=== PATIENT | female | born 1980 | race Caucasian/White ===

== ENCOUNTER 2023-02-25 08:45 | Outpatient (CLI) | payer OTHER, SELFPAY ==
--- NOTE | ~2023-02-25 | MM_ITS ---
EXAMINATION: MM screening kareem BI w ck HISTORY: Screening mammogram TECHNIQUE: Craniocaudal and mediolateral oblique 3-D tomosynthesis images were obtained and synthetic 2-D images were generated. CAD analysis was submitted and interpreted. COMPARISON: No prior mammogram is available for comparison at this institution. BREAST PARENCHYMAL COMPOSITION: The breasts are heterogeneously dense, which may obscure small masses . FINDINGS: No suspicious mass, calcification, or architectural distortion are identified in either bry ast to suggest malignancy. IMPRESSION: 1. No mammographic evidence of malignancy. 2. Recommend routine screening mammography in one year. BI-RADS Category 1: Negative Reviewed, dictated and finalized at location A.
[2023-02-25 09:11] LABS: Basophils Percent Auto 0.3 % (0.2-1.2); Eosinophils Absolute Auto 0.1 K/mm3 (0-0.3); Hematocrit 40.6 % (37.0-47.0); Hemoglobin 13.5 g/dL (12.0-15.0); Immature Granulocyte Absolute 0.02 K/mm3 (0.00-0.031); Immature Granulocyte Percent A 0.3 % (0-0.5); Lymphocytes Percent Auto 22.9 % (18.3-44.2); Mean Corpuscular HGB Conc 33.3 g/dl (32-36); Mean Corpuscular Volume 93.1 fl (80-100); Monocytes Absolute Auto 0.5 K/mm3 (0.1-0.6); Monocytes Percent Auto 7.8 % (2.6-8.5); Neutrophils Absolute Auto 4.4 K/mm3 (1.3-6.7); Neutrophils Percent Auto 66.7 % (45.5-73.1); Platelet Count Result 304 k/mm3 (150-375); Red Blood Count 4.36 M/mm3 (4.2-5.4); Red Cell Distribution Width 12.9 % (11.5-14.5); White Blood Count 6.6 K/mm3 (4.5-10.0)
[2023-02-25 09:20] LABS: Alanine Aminotransferase 23 U/L (6-35); Albumin Level 4.7 g/dL (3.5-5.1); Alkaline Phosphatase 78 U/L (38-126); Anion Gap 8 mmol/L (8-16); Aspartate Amino Transferase 26 U/L (14-36); Bilirubin,Total 0.7 mg/dL (0.2-1.3); Blood Urea Nitrogen 12 mg/dL (7-17); Calcium 9.3 mg/dL (8.4-10.2); Carbon Dioxide 29 mmol/L (22-30); Chloride 98 mmol/L (98-107); Cholesterol 184 mg/dL (0-200); Estimated Glomerular Filt Rate > 60; Glucose 91 mg/dL (65-110); HDL Direct 54 mg/dL; Potassium 4.3 mmol/L (3.4-5.0); Sodium 135 mmol/L (137-145); Triglycerides 55 mg/dL (<150)
[2023-02-25 09:24] LABS: Rheumatoid Factor < 12.0 IU/ML (<12)
[2023-02-25 09:31] LABS: LDL Cholesterol Direct 102 mg/dL
[2023-02-25 09:47] LABS: Erythrocyte Sedimentation Rate 45 mm/hr (0-20)
[2023-02-25 09:57] LABS: Vitamin D 25 Hydroxy 38.5 ng/mL
[2023-02-28 09:43] LABS: ANA Cascade Screen Negative (Negative)
[2023-03-02 10:48] LABS: Anti Cyclic Citrullinated Pept <16 Units (<20)
== END 2023-02-25 08:46 | disposition home or self-care (01) ==
PROVIDERS: PCP Internal Medicine; Referring Provider Physician Assistant Medical; Visit Provider Physician Assistant Medical
DX: Z12.31 Encounter for screening mammogram for malignant neoplasm of breast (principal); Z00.00 Encounter for general adult medical examination without abnormal findings; E53.8 Deficiency of other specified B group vitamins; E55.9 Vitamin D deficiency, unspecified; M25.50 Pain in unspecified joint; M13.0 Polyarthritis, unspecified
CPT/HCPCS: 36415; 77063; 77067; 80053; 80061; 82306; 82607; 84443; 85025; 85652; 86038; 86200; 86430

== ENCOUNTER 2024-01-17 08:34 | Outpatient (CLI) | payer OTHER, SELFPAY ==
[2024-01-17 09:08] LABS: Basophils Percent Auto 0.4 % (0.2-1.2); Eosinophils Absolute Auto 0.2 K/mm3 (0-0.3); Hematocrit 40.5 % (37.0-47.0); Hemoglobin 12.9 g/dL (12.0-15.0); Immature Granulocyte Absolute 0.02 K/mm3 (0.00-0.031); Immature Granulocyte Percent A 0.4 % (0-0.5); Lymphocytes Absolute Auto 1.25 K/mm3 (0.9-3.2); Lymphocytes Percent Auto 24.9 % (18.3-44.2); Mean Corpuscular HGB Conc 31.9 g/dl (32-36); Mean Corpuscular Hemoglobin 30.4 pg (26-34); Mean Corpuscular Volume 95.5 fl (80-100); Mean Platelet Volume 9.6 fl (7.4-10.4); Monocytes Absolute Auto 0.4 K/mm3 (0.1-0.6); Neutrophils Absolute Auto 3.2 K/mm3 (1.3-6.7); Neutrophils Percent Auto 64.3 % (45.5-73.1); Platelet Count Result 276 k/mm3 (150-375); Red Blood Count 4.24 M/mm3 (4.2-5.4); Red Cell Distribution Width 12.6 % (11.5-14.5)
[2024-01-17 09:57] LABS: Alanine Aminotransferase 26 U/L (6-35); Albumin Level 4.4 g/dL (3.5-5.1); Alkaline Phosphatase 69 U/L (38-126); Anion Gap 3 mmol/L (8-16); Aspartate Amino Transferase 28 U/L (14-36); Bilirubin,Total 0.7 mg/dL (0.2-1.3); Blood Urea Nitrogen 11 mg/dL (7-17); Calcium 9.5 mg/dL (8.4-10.2); Carbon Dioxide 30 mmol/L (22-30); Chloride 102 mmol/L (98-107); Cholesterol 167 mg/dL (0-200); Estimated Glomerular Filt Rate > 60; Glucose 92 mg/dL (65-110); HDL Direct 53 mg/dL; Magnesium 2.2 mg/dL (1.6-2.3); Sodium 135 mmol/L (137-145); Triglycerides 55 mg/dL (<150)
[2024-01-17 10:08] LABS: LDL Cholesterol Direct 97 mg/dL
[2024-01-17 10:30] LABS: Erythrocyte Sedimentation Rate 16 mm/hr (0-20)
[2024-01-17 12:04] LABS: Vitamin D 25 Hydroxy 70.4 ng/mL
[2024-01-17 12:12] LABS: Folic Acid 11.2 ng/mL (2.76->20)
[2024-01-21 08:10] LABS: CRP, High Sensitivity 1.1 mg/L (***)
== END 2024-01-17 08:35 | disposition home or self-care (01) ==
LOC: ANHLAB 08:35
PROVIDERS: PCP Internal Medicine; Visit Provider Physician Assistant Medical
DX: E53.8 Deficiency of other specified B group vitamins (principal); E55.9 Vitamin D deficiency, unspecified; M25.50 Pain in unspecified joint; R20.2 Paresthesia of skin; R51.9 Headache, unspecified; R53.83 Other fatigue; Z00.00 Encounter for general adult medical examination without abnormal findings; Z83.3 Family history of diabetes mellitus
CPT/HCPCS: 36415; 80053; 80061; 82306; 82607; 82746; 83735; 85025; 85652; 86141

== ENCOUNTER 2024-05-07 09:53 | Outpatient (CLI) | payer OTHER, SELFPAY ==
--- NOTE | ~2024-05-07 | MM_ITS ---
EXAMINATION: MM screening kareem BI w ck HISTORY: Screening TECHNIQUE: Craniocaudal and mediolateral oblique 3-D tomosynthesis images were obtained and synthetic 2-D images were generated. CAD analysis was submitted and interpreted. COMPARISON: 02/25/2023 BREAST PARENCHYMAL COMPOSITION: Dense: The breasts are extremely dense, which lowers the sensitivity of mammography. FINDINGS: There is no evidence of suspicious mass, calcification, or architectural distortion to sugg est malignancy in either breast. There has been no suspicious interval change. IMPRESSION: 1. No mammographic evidence of malignancy. 2. Recommend routine screening mammography in one year. BI-RADS Category 1: Negative Reviewed, dictated and finalized at location B.
== END 2024-05-07 09:54 | disposition home or self-care (01) ==
PROVIDERS: PCP Physician Assistant Medical; Visit Provider Physician Assistant Medical
DX: Z12.31 Encounter for screening mammogram for malignant neoplasm of breast (principal)
CPT/HCPCS: 77063; 77067

== ENCOUNTER 2025-03-11 10:03 | Outpatient (CLI) | payer OTHER, SELFPAY ==
--- OUTSIDE RECORDS SUMMARY | 2025-03-11 10:14 | XMS_ITS | Clinical Summary ---
Author Organization [facility] [employer] Address [address] [place] [address] Care Team Providers Care Content Curator Name Role Phone Unavailable Primary Care Provider Unavailabl e Source Comments [facility] [employer],non-owned Affiliates and Associated Physician Practices is amultiple site organization consisting of ambulatory clinics and hospital sitesin [place], [place], [place] and [place]. This disclosure is being madepursuant to the Care Everywhere program and may not contain all information available regarding this patient. Last updated 18.[facility] [employer] Allergies Active Allergy Reactions Criticality Noted Date Comments Ciprofloxacin Urticaria,Itching Medium 02/03/2019 Hydroxyquinolines Urticaria Medium 02/03/2019 Medications * Be aware that medications may not be up to date on this document. Alwaysverify current medications with the patient. Vit-Fe Fumarate-FA ( VITAMIN) 28-0.8 MG tablet Take 1 tablet by mouth once daily Active pyridoxine (VITAMIN B-6) 25 MG tablet Take 50 mg by mouth once daily Active cyanocobalamin (VITAMIN B-12) 100 MCG tablet Take 100 mcg by mouth once daily Active Cholecalciferol (VITAMIN D3) 400 UNITS tablet Take 400 Units by mouth once daily Active magnesium oxide (MAG-OX) 400 MG tablet Take 200 mg by mouth once daily Active Active Problems Problem Noted Date Diagnosed Date Low-lying placenta 03/01/2019 Assessment & Plan (03/03/2019 11:08 AM CDT): Resolved low lying placenta No suggestion of Vasa previa May discontinue pelvic rest Maintains residual risk of growth or focal placenta accreta based on number of prior deliveries 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/2019 Assessment & Plan (03/03/2019 11:07 AM CDT): Serial growth every 4 weeks Supervision of high-risk of elderly mu ltigravida 03/01/2019 Overview (03/03/2019): Anatomy screen: Unremarkable H/O section complicating 02/2019 Resolved Problems Problem Noted Date Diagnosed Date Resolved Date Abnormal obstetric ultrasound scan 01/29/2019 03/03/2019 Antepartum multigravida of a dvanced maternal age 0401/29/2019 03/03/2019 Family History Medical History Relation Name Comments Hypertension Brother Cancer - Prostate Father Diabetes - Type 2 Father Hypertension Father Anxiety Disorder Mother COPD - Chronic Obstructive Pulmonary Disease Mother Hypertension Mother Thyroid Disease Mother Relation Name Status Comments Brother Alive Father Alive Mother Alive alpha 1 antitri psen carrier Sister Alive Social History Tobacco Use Types Packs/Day Years Used Date Smoking Tobacco: Never Smokeless Tobacco: Never Alcohol Use Standard Drinks/Week Comments No 0 (1 standard drink = 0.6 oz pur e alcohol) Comments No Sex and Gender Information Value Date Recorded Sex Assigned at Not on file 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 Gender Identity Not on file Sexual Orientation Not on file Last Filed Vital Signs Vital Sign Reading Time Taken Comments Blood Pressure 110/63 03/03/2019 10:49 AM CDT Pulse 75 03/03/2019 10:49 AM CDT Temperature - - Respiratory Rate - - Oxygen Saturation - - Inhaled Oxygen Concentration - - Weight 88.9 kg (196 lb) 03/03/2019 10:49 AM CDT Height - - Body Mass Index - - Plan of Treatment Health Maintenance Due Date Last Done Comments LIPID TESTING 1981 MAMMOGRAM 1981 HIV SCREENING 1996 HEPATITIS C SCREENING 05/28/1999 DTAP/TDAP/TD VACCINES (1 - Tdap) 2000 HEPATITIS B VACCINE (1 of 3 - 19+ 3-dose series) 2000 COVID-19 VACCINE ( - 2023-2 5 season) 2024 DEPRESSION SCREENING 10/27/2024 INFLUENZA VACCINE (Season Ended) 2025 ZOSTER VACCINE (1 of 2) 2031 HIB VACCINE Aged Out No longer eligi ble based on patient's age to complete this topic HPV VACCINE Aged Out No longer eligi ble based on patient's age to complete this topic MENINGOCOCCAL (Group B) VACC INE SHARED DECISION-MAKING Aged Out No longer eligibl e based on patient's age to complete this topic MENINGOCOCCAL GROUPS A/C/Y/W VACCINE Aged Out No longer eligible b ased on patient's age to complete this topic PNEUMOCOCCAL VACCINE Aged Out No long er eligible based on patient's age to complete this topic Insurance [facility] [address] [facility]
[2025-03-11 10:30] LABS: Basophils Percent Auto 0.4 % (0.2-1.2); Eosinophils Absolute Auto 0.1 K/mm3 (0-0.3); Eosinophils Percent Auto 1.8 % (0-4.4); Hematocrit 40.2 % (37.0-47.0); Hemoglobin 12.6 g/dL (12.0-15.0); Immature Granulocyte Absolute 0.01 K/mm3 (0.00-0.031); Immature Granulocyte Percent A 0.2 % (0-0.5); Lymphocytes Absolute Auto 1.08 K/mm3 (0.9-3.2); Lymphocytes Percent Auto 21.9 % (18.3-44.2); Mean Corpuscular HGB Conc 31.3 g/dl (32-36); Mean Corpuscular Hemoglobin 30.1 pg (26-34); Mean Corpuscular Volume 95.9 fl (80-100); Mean Platelet Volume 9.4 fl (7.4-10.4); Monocytes Absolute Auto 0.5 K/mm3 (0.1-0.6); Monocytes Percent Auto 9.1 % (2.6-8.5); Neutrophils Absolute Auto 3.3 K/mm3 (1.3-6.7); Neutrophils Percent Auto 66.6 % (45.5-73.1); Platelet Count Result 292 k/mm3 (150-375); Red Blood Count 4.19 M/mm3 (4.2-5.4); Red Cell Distribution Width 12.6 % (11.5-14.5); White Blood Count 4.9 K/mm3 (4.5-10.0)
[2025-03-11 11:14] LABS: Total Triiodothyronine (T3) 1.26 NG/ML (0.97-1.69)
[2025-03-11 11:16] LABS: Erythrocyte Sedimentation Rate 54 mm/hr (0-20)
[2025-03-11 11:34] LABS: Iron 102 ug/dL (37-170)
[2025-03-11 11:45] LABS: Percent Iron Saturation 28 % (20-50)
[2025-03-11 12:17] LABS: Free T4 Free Thyroxine 1.16 ng/dL (0.78-2.19)
[2025-03-11 13:00] LABS: Free T3 2.97 pg/mL (2.71-6.16); Vitamin D 25 Hydroxy 88.2 ng/mL
[2025-03-11 13:26] LABS: Hemoglobin A1C 5.3 % (<5.7)
[2025-03-12 04:54] LABS: Triiodothryronine T3 Uptake 28 % (22-35)
[2025-03-14 16:53] LABS: Reference Lab Test Name EBV Early Ag DAB IgG
[2025-03-23 02:19] LABS: Estradiol, Ultrasensitive 85 pg/mL
== END 2025-03-11 10:04 | disposition home or self-care (01) ==
PROVIDERS: PCP Physician Assistant Medical; Visit Provider Physician Assistant Medical
DX: M25.50 Pain in unspecified joint (principal); R53.83 Other fatigue; Z00.00 Encounter for general adult medical examination without abnormal findings; N93.8 Other specified abnormal uterine and vaginal bleeding
CPT/HCPCS: 36415; 82306; 82607; 82670; 82728; 83036; 83540; 83550; 84439; 84443; 84479; 84480; 84481; 85025; 85652; 86663

== ENCOUNTER 2025-04-01 09:47 | Outpatient (CLI) | payer OTHER, SELFPAY ==
--- NOTE | ~2025-04-01 | CT_ITS ---
EXAMINATION: CT abdomen pelvis w con DATE: 04/01/2025 10:50 INDICATION: Abdominal pain TECHNIQUE: Computed tomography (CT) of the abdomen and pelvis was performed with 100 cc Omnipaque 350 intravenous contrast. The dose-length product was 549.06 mGy-cm. Automated exposure control and iterative reconstruction technique were employed. COMPARISON: None. FINDINGS: Lung bases unremarkable. Heart size normal. No significant pleural or pericardial effusion. The liver, spleen, pancreas, adrenal glands. Trace free fluid in the pelvis, physiologic. No signifi cant vascular abnormality. No lymphadenopathy. No acute osseous abnormality. Mild levoscoliosis of th e lumbar spine. IMPRESSION: 1. No acute abdominal abnormality. Reviewed, dictated and finalized at location A.
== END 2025-04-01 09:48 | disposition home or self-care (01) ==
LOC: MICIMG 09:48
PROVIDERS: PCP Physician Assistant Medical; Visit Provider Physician Assistant Medical
DX: R10.9 Unspecified abdominal pain (principal)
CPT/HCPCS: 74177; Q9967

== ENCOUNTER 2025-06-03 09:03 | Outpatient (CLI) | payer OTHER, SELFPAY ==
--- OUTSIDE RECORDS SUMMARY | 2025-06-03 09:11 | XMS_ITS | Clinical Summary ---
Author Organization [facility] Address [address] [place] [id number] Care Team Providers Care Type Copyist Name Role Phone Denis Earl MD Primary Care Provider [phone] Allergies Active Allergy Reactions Criticality Noted Date Comments Ciprofloxacin Hives,Itching,Unknown High 08/13/2013 Hydroxyquinolines Unknown Medium 02/03/2019 Levofloxacin Hives High 08/13/2013 Medications 28-0.8 MG tablet Take 1 tablet by mouth daily. Active Active Problems Problem Noted Date Diagnosed Date ([facility]) 05/21/2019 Immunizations Immunization Administration Dates Next Due MODERNA COVID-19 (12+) MRNA, LNP-S, PF, 100 MCG/ 0.5 ML DOSE 11/22/2020,10/25/2020 Tdap (Generic) 03/17/2019 Family History Medical History Relation Comments Diabetes Brother 1 Hyperlipidemia Brother 1 Hypertension Brother 1 Diabetes Father Hyperlipidemia Father Hypertension Father COPD Mother Hypertension Mother Thyroid Mother Relation Status Comments Brother 1 Alive Brother 2 Alive Daughter 1 Alive Daughter 2 Alive Father Alive Mother Alive Sister Alive Social History Tobacco Use Types Packs/Day Years Used Date Smoking Tobacco: Never Smokeless Tobacco: Never Alcohol Use Standard Drinks/Week Comments No 0 (1 standard drink = 0.6 oz pur e alcohol) AUDIT-C Answer Date Recorded Frequency of Alcohol Consumption Never 05/06/2019 Average Number of Drinks Not on file 019 Frequency of Binge Drinking Not on file 04/26 Comments No Sex and Gender Information Value Date Recorded Sex Assigned at Not on file Legal Sex Female 8:03 AM CDT Gender Identity Not on file Sexual Orientation Not on file Last Filed Vital Signs Vital Sign Reading Time Taken Comments Blood Pressure 118/65 05/23/2019 7:00 AM CDT Pulse 74 05/23/2019 7:00 AM CDT Temperature 36.9 C (98.4 F) 05/23/2019 7:00 AM CDT Respiratory Rate 18 05/23/2019 7:00 AM CDT Oxygen Saturation 99% 05/23/2019 7:00 AM CDT Inhaled Oxygen Concentration - - Weight 68.9 kg (151 lb 14.4 oz) 05/21/2019 6:18 AM CDT Height 175.3 cm (5' 9) 05/21/2019 6:19 AM CDT Body Mass Index 22.43 05/21/2019 6:18 AM CDT Plan of Treatment Health Maintenance Due Date Last Done Comments Cervical Cancer Screening Pa p Smear (Age 30 to 64) Every 3 Years 1981 Annual Physical 1984 Hepatitis C 1999 Hepatitis B Vaccines (1 of 3 - 19+ 3-dose series) 2000 HPV Vaccines (1 - 3-dose SCD M series) 2008 Cervical Cancer Screening Pa p with HPV Testing (Age 30 to 64) Every 5 Years 2011 Cervical Cancer Screening wi th HPV 2011 Mammogram Screening 2021 COVID-19 Vaccine (3 - 2023-2 5 season) 2024 11/22/2020, 10/25/2020 DTaP, Tdap and Td Vaccines ( 2 - Td or Tdap) 03/17/2029 03/17/2019 Meningococcal B Vaccine Aged Out No l onger eligible based on patient's age to complete this topic Meningococcal Vaccine Aged Out No luigi jignesh eligible based on patient's age to complete this topic Pneumococcal Vaccine: Pediatrics (0 to 5 Years) and At-Risk Patients (6 to 49 Years) Aged Out No longer eligible b ased on patient's age to complete this topic RSV Immunizations Under 20 Months Aged Out No longer eligible b ased on patient's age to complete this topic Insurance [facility] Advance Directives Documents on File Type Date Recorded 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
--- OUTSIDE RECORDS SUMMARY | 2025-06-03 09:11 | XMS_ITS | Clinical Summary ---
Author Organization [facility] Address [address] [place] [address] Care Team Providers Care Health Therapist Name Role Phone Unavailable Primary Care Provider Unavailabl e Source Comments [facility],non-owned Affiliates and Associated Physician Practices is amultiple site organization consisting of ambulatory clinics and hospital sitesin [place], [place], [place] and [place]. This disclosure is being madepursuant to the Care Everywhere program and may not contain all information available regarding this patient. 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
[2025-06-03 10:18] LABS: Alanine Aminotransferase 20 U/L (6-35); Albumin Level 4.1 g/dL (3.5-5.1); Alkaline Phosphatase 69 U/L (38-126); Anion Gap 7 mmol/L (4-12); Aspartate Amino Transferase 26 U/L (14-36); Bilirubin,Total 0.3 mg/dL (0.2-1.3); Blood Urea Nitrogen 9 mg/dL (7-17); Calcium 9.4 mg/dL (8.4-10.2); Carbon Dioxide 28 mmol/L (22-30); Chloride 101 mmol/L (98-107); Cholesterol 183 mg/dL (0-200); Estimated Glomerular Filt Rate > 60; Glucose 87 mg/dL (65-110); HDL Direct 68 mg/dL; Potassium 4.3 mmol/L (3.4-5.0); Sodium 136 mmol/L (137-145); Total Protein 7.6 g/dL (6.3-8.2); Triglycerides 63 mg/dL (<150)
== END 2025-06-03 09:04 | disposition home or self-care (01) ==
LOC: ANHLAB 09:08
PROVIDERS: PCP Physician Assistant Medical; Visit Provider Physician Assistant Medical
DX: M25.50 Pain in unspecified joint (principal); Z00.00 Encounter for general adult medical examination without abnormal findings
CPT/HCPCS: 36415; 80053; 80061; 85652; 86480

== ENCOUNTER 2025-09-21 13:26 | Outpatient (CLI) | payer OTHER, SELFPAY ==
--- NOTE | ~2025-09-21 | MM_ITS ---
EXAMINATION: MM screening kareem BI w ck HISTORY: Screening. TECHNIQUE: Craniocaudal and mediolateral oblique 3-D tomosynthesis images were obtained and synthetic 2-D images were generated. CAD analysis was submitted and interpreted. COMPARISON: 2023 and 2022 BREAST PARENCHYMAL COMPOSITION: Dense: The breast tissue is heterogeneously dense, which may obscure small masses. FINDINGS: No suspicious masses are seen. There are no suspicious calcifications. No unexplained architectural distortion is seen. There are no skin or nipple abnormalities identified. There is no adenopathy seen on the images submitted. IMPRESSION: No mammographic evidence to suggest malignancy is seen. The patient may return to screening mammography as per ACR guidelines. BI-RADS: 1 - Negative. Reviewed, dictated and finalized at location B. VISION PRODUCTION CLERK
--- NOTE | ~2025-09-21 | XR_ITS ---
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 Findings: No acute fracture or malalignment. No significant degenerative changes. Soft tissues unremarkable. Impression: No acute fracture or malalignment. Reviewed, dictated and finalized at location P. ING MACHINE OPERATOR Impression: No acute fracture or malalignment.
--- NOTE | ~2025-09-21 | XR_ITS ---
EXAMINATION: XR tibia fibula RT 2V, 09/21/2025 13:45 HAT MODEL HISTORY: LATERAL RT ANKLE TIBFIB PAIN AFTER FALL x2 MONTHS AGO COMPARISON: No comparisons available. Findings: No acute fracture or malalignment. No significant degenerative changes. Soft tissues unremarkable. Impression: No acute fracture or malalignment. Reviewed, dictated and finalized at location P. MODEL Impression: No acute fracture or malalignment.
== END 2025-09-21 13:27 | disposition home or self-care (01) ==
LOC: MICIMG 13:27
PROVIDERS: PCP Physician Assistant Medical; Visit Provider Physician Assistant Medical
DX: Z12.31 Encounter for screening mammogram for malignant neoplasm of breast (principal); M25.571 Pain in right ankle and joints of right foot; M79.661 Pain in right lower leg
CPT/HCPCS: 73590; 73610; 77063; 77067